=== PATIENT | male | born 1985 | race Hispanic/Latino ===

== ENCOUNTER 2017-12-10 16:55 | Emergency (ER) | payer OTHER ==
[2017-12-10] MEDS ORDERED: TETRACAINE HCL 0.5% 2ML OPTH ONE (17:34)
[2017-12-10] MEDS ORDERED: FLUORESCEIN SODIUM 0.6 MG/WRAP ONE (17:35)
--- NOTE | 2017-12-10 17:42 | ER ---
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 Transition of care: patient was not received from another setting of care. Onset of symptoms was December 10, 2017. Care prior to arrival: None. 17:08 Method Of Arrival: Ambulatory hj 17:08 Acuity: ELLY 4 hj Triage Assessment: 17:10 General: Appears in no apparent distress. uncomfortable, Behavior is calm, cooperative, hj appropriate for age. Pain: Complains of pain in right eye. Historical: - Allergies: 17:10 No Known Allergies; hj - Home Meds: 17:10 None [Active]; hj - PMHx: 17:10 None; hj - PSHx: 17:10 None; hj - Immunization history:: Adult Immunizations up to date. - Social history:: Smoking status: Patient/guardian denies using tobacco. Screenin:15 Abuse screen: Denies threats or abuse. Nutritional screening: No deficits noted. rb1 Tuberculosis screening: No symptoms or risk factors identified. Fall Risk None identified. Assessment: 17:15 General: Appears in no apparent distress. comfortable, Behavior is calm, cooperative. rb1 General: Denies fever. Pain: Complains of pain in right eye Pain currently is 6 out of 10 on a pain scale. Pain began Monday. Neuro: Level of Consciousness is awake, alert, obeys commands, Oriented to person, place, time, situation. Cardiovascular: Capillary refill < 3 seconds is brisk in bilateral fingers. Respiratory: Airway is patent Respiratory effort is even, unlabored, Respiratory pattern is regular, symmetrical. GI: No signs and/or symptoms were reported involving the gastrointestinal system. : No signs and/or symptoms were reported regarding the genitourinary system. EENT: Eyes Swelling noted to the right eye.. Derm: Skin is dry, Skin is normal, Skin temperature is warm. 17:56 Reassessment: Discharge pending, waiting on medication from pharmacy. rb1 18:08 Reassessment: Patient appears in no apparent distress at this time. No changes from rb1 previously documented assessment. Vital Signs: 17:10 BP 127 / 89; Pulse 79; Resp 18; Temp 97.6(TE); Pulse Ox 98% on R/A; Weight 81.65 kg; hj Height 5 ft. 5 in. (165.10 cm); Pain 6/10; 18:08 BP 122 / 91; Pulse 63; Resp 16; Pulse Ox 99% on R/A; rb1 17:10 Body Mass Index 29.95 (81.65 kg, 165.10 cm) ED Course: 16:58 Patient arrived in ED. sb2 17:10 Triage completed. hj 17:10 Arm band placed on right wrist. hj 17:13 David Fernando MD is Attending Physician. rn 17:15 Patient has correct armband on for positive identification. Bed in low position. Call rb1 light in reach. Side rails up X 1. Pulse ox on. NIBP on. 17:38 Kelley Hawthorne, RN is Primary Nurse. rb1 17:39 [facility] Al[facility]C [facility]. snw 18:18 No provider procedures requiring assistance completed. Patient did not have IV access rb1 during this emergency room visit. Administered Medications: 17:46 Drug: Bactrim (160 mg-800 mg (DS) 1 tablet Route: PO; rb1 18:18 Follow up: Response: No adverse reaction rb1 17:46 Drug: KeFLEX 500 mg Route: PO; rb1 18:18 Follow up: Response: No adverse reaction rb1 18:13 Drug: Tobrex 0.3 % 1 application Route: Ophthalmic; Site: right eye; rb1 Outcome: 17:41 Discharge ordered by . snw 18:18 Patient left the ED. rb1 18:18 Discharged to home ambulatory. rb1 18:18 Condition: stable 18:18 Discharge instructions given to patient, Instructed on discharge instructions, follow up and referral plans. medication usage, Demonstrated understanding of instructions, follow-up care, medications, Prescriptions given X 2. Signatures: Marita Alcantara FNP-C DIVERSITY MANAGER-Csnw David Fernando MD MD rn Joaquin, Henry, RN RN Kelley Hawthorne, KULWANT Spearu, Jimena sb2 Corrections: (The following items were deleted from the chart) 17:12 17:10 Pulse 79bpm; Resp 18bpm; Pulse Ox 100% RA; Temp 97.6F Temporal; 81.65 kg; Height hj 5 ft. 5 in.; BMI: 29.9; Pain 6/10; hj 19:03 18:18 Patient left the ED. rb1 rb1 19:06 18:08 Patient left the ED. rb1 rb1
--- NOTE | 2017-12-10 17:42 | EDPHYS ---
Physician Documentation [facility] Name: Clarence Copeland Age: 32 yrs Sex: Male : 1985 Arrival Date: 12/10/2017 Time: 16:58 Bed 16 Private MD: ED Physician David Fernando HPI: 12/10 17:22 This 32 yrs old Male presents to ER via Ambulatory with complaints of Foreign snw Body In Eye. 17:22 The patient is experiencing something growing on right upper eyelid, squeezed it and it snw bled a little. Onset: The symptoms/episode began/occurred suddenly, 3 day(s) ago, and became worse and became persistent. Duration: the symptoms are continuous. Aggravated by blinking, opening eye, rubbing. Associated signs and symptoms: Pertinent positives: None. Patient does not utilize any form of vision correction. Severity of symptoms: At their worst the symptoms were mild moderate in the emergency department the symptoms are unchanged. The patient has not experienced similar symptoms in the past. It is unknown whether or not the patient has recently seen a physician. 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 Historical: - Allergies: 17:10 No Known Allergies; hj - Home Meds: 17:10 None [Active]; hj - PMHx: 17:10 None; hj - PSHx: 17:10 None; hj - Immunization history:: Adult Immunizations up to date. - Social history:: Smoking status: Patient/guardian denies using tobacco. ROS: 17:21 Constitutional: Negative for fever, chills, and weight loss, ENT: Negative for injury, snw pain, and discharge, Neck: Negative for injury, pain, and swelling, Cardiovascular: Negative for chest pain, palpitations, and edema, Respiratory: Negative for shortness of breath, cough, wheezing, and pleuritic chest pain, Abdomen/GI: Negative for abdominal pain, nausea, vomiting, diarrhea, and constipation, Back: Negative for injury and pain, : Negative for injury, bleeding, discharge, and swelling, MS/Extremity: Negative for injury and deformity, Skin: Negative for injury, rash, and discoloration, Neuro: Negative for headache, weakness, numbness, tingling, and seizure. 17:21 Eyes: Positive for discharge, redness, swelling, of the right outer upper eyelid. Exam: 17:17 Constitutional: This is a well developed, well nourished patient who is awake, alert, snw and in no acute distress. Head/Face: Normocephalic, atraumatic. ENT: Nares patent. No nasal discharge, no septal abnormalities noted. Tympanic membranes are normal and external auditory canals are clear. Oropharynx with no redness, swelling, or masses, exudates, or evidence of obstruction, uvula midline. Mucous membranes moist. Neck: Trachea midline, no thyromegaly or masses palpated, and no cervical lymphadenopathy. Supple, full range of motion without nuchal rigidity, or vertebral point tenderness. No Meningismus. Chest/axilla: Normal chest wall appearance and motion. Nontender with no deformity. No lesions are appreciated. Cardiovascular: Regular rate and rhythm with a normal S1 and S2. No gallops, murmurs, or rubs. Normal PMI, no JVD. No pulse deficits. Respiratory: Lungs have equal breath sounds bilaterally, clear to auscultation and percussion. No rales, rhonchi or wheezes noted. No increased work of breathing, no retractions or nasal flaring. Abdomen/GI: Soft, non-tender, with normal bowel sounds. No distension or tympany. No guarding or rebound. No evidence of tenderness throughout. Back: No spinal tenderness. No costovertebral tenderness. Full range of motion. Skin: Warm, dry with normal turgor. Normal color with no rashes, no lesions, and no evidence of cellulitis. MS/ Extremity: Pulses equal, no cyanosis. Neurovascular intact. Full, normal range of motion. Neuro: Awake and alert, GCS 15, oriented to person, place, time, and situation. Cranial nerves II-XII grossly intact. Motor strength 5/5 in all extremities. Sensory grossly intact. Cerebellar exam normal. Normal gait. 17:17 Eyes: Periorbital structures: appear normal, Pupils: no acute changes, Extraocular movements: no acute changes, Conjunctiva: normal, Corneas: are normal, Sclera: no appreciated abnormality, Anterior chamber: normal, Lids and lashes: edema, of the right eye, hordeolum. Visual bailey: are intact. Vital Signs: 17:10 BP 127 / 89; Pulse 79; Resp 18; Temp 97.6(TE); Pulse Ox 98% on R/A; Weight 81.65 kg; hj Height 5 ft. 5 in. (165.10 cm); Pain 6/10; 18:08 BP 122 / 91; Pulse 63; Resp 16; Pulse Ox 99% on R/A; rb1 17:10 Body Mass Index 29.95 (81.65 kg, 165.10 cm) hj MDM: 17:13 Patient medically screened. rn 17:43 Data reviewed: vital signs, nurses notes. Data interpreted: Pulse oximetry: on room air snw is 98 %. Interpretation: normal. Counseling: I had a detailed discussion with the patient and/or guardian regarding: the historical points, exam findings, and any diagnostic results supporting the discharge/admit diagnosis, the presence of at least one elevated blood pressure reading (>120/80) during this emergency department visit, the need for outpatient follow up, to return to the emergency department if symptoms worsen or persist or if there are any questions or concerns that arise at home. Special discussion: I have referred the patient to see his PCP for further evaluation of high blood pressure. Based on the history and exam findings, there is no indication for further emergent testing or inpatient evaluation. I discussed with the patient/guardian the need to see the opthamologist for further evaluation of the symptoms, I discussed with the patient/guardian the need to see the primary care provider for further evaluation of the symptoms. Administered Medications: 17:46 Drug: Bactrim (160 mg-800 mg (DS) 1 tablet Route: PO; rb1 18:18 Follow up: Response: No adverse reaction rb1 17:46 Drug: KeFLEX 500 mg Route: PO; rb1 18:18 Follow up: Response: No adverse reaction rb1 18:13 Drug: Tobrex 0.3 % 1 application Route: Ophthalmic; Site: right eye; rb1 Disposition: 18:23 Co-signature as Attending Physician, David Fernando MD. rn Disposition: 12/10/17 17:41 Discharged to Home. Impression: Hordeolum externum right upper eyelid. - Condition is Stable. - Discharge Instructions: Stye, Heat Therapy. - Prescriptions for Keflex 500 mg Oral Capsule - take 1 capsule by ORAL route every 8 hours for 10 days; 30 capsule. Bactrim DS 800- 160 mg Oral Tablet - take 1 tablet by ORAL route every 12 hours for 10 days; 20 tablet. - Medication Reconciliation Form, Thank You Letter, Antibiotic Education, Prescription Opioid Use form. - Follow up: Private Physician; When: 2 - 3 days; Reason: Recheck today's complaints, Continuance of care, Re-evaluation by your physician. Follow up: Emergency Department; When: As needed; Reason: Worsening of condition. Signatures: Marita Alcantara, KIEL-C TEACHER PRIVATE-Csnw David Fernando MD MD rn Joaquin, Henry, RN RN hj Barber, Rebecca, RN RN rb1
[2017-12-10] MEDS ORDERED: CEPHALEXIN 250 MG CAP ONE (18:14)
[2017-12-10] MEDS ORDERED: SMZ./TMP. 800/160 MG TABLET ONE (18:14)
[2017-12-10] MEDS ORDERED: TOBRAMYCIN 0.3% 5ML OPTH DROPS OPTH ONE (18:15)
== END 2017-12-10 18:18 | disposition home or self-care (01) ==
LOC: ER 16:55
DX: H00.011 Hordeolum externum right upper eyelid (principal)
CPT/HCPCS: 99283

== ENCOUNTER 2017-12-23 20:43 | Emergency (ER) | payer OTHER ==
--- NOTE | 2017-12-23 22:32 | EDPHYS ---
Physician Documentation [facility] Name: Clarence Copeland Age: 32 yrs Sex: Male : 1985 Arrival Date: 12/23/2017 Time: 20:57 Bed 24 Private MD: ED Physician Sanjuana Álvarez HPI: 12/23 22:26 This 32 yrs old Male presents to ER via Ambulatory with complaints of Eye kav Problem. 22:26 The patient is experiencing stye right eyelid. Onset: The symptoms/episode kav began/occurred acutely, 2 week(s) ago. 22:33 Duration: the symptoms are continuous, are chronic. Aggravated by blinking, Alleviated kav by heat application. Associated signs and symptoms: Pertinent positives:. Associated signs and symptoms: Pertinent positives: None. Pertinent negatives: chills, fever. Patient does not utilize any form of vision correction. Severity of symptoms: At their worst the symptoms were mild just prior to arrival, in the emergency department the symptoms are unchanged despite home interventions. The patient has experienced a previous episode, approximately 2 weeks ago. The patient has been recently seen at the [facility] Emergency Department, a couple of weeks ago. seen in this ER 2 weeks ago for similar c/o and took "...all his medication and eye is much better but the stye is still on the upper eyelid". Historical: - Allergies: 21:02 No Known Allergies; la1 - PMHx: 21:02 None; la1 - Immunization history:: Adult Immunizations up to date. - Social history:: Smoking status: Patient/guardian denies using tobacco. - Family history:: not pertinent. - Hospitalizations: : No recent hospitalization is reported. - History obtained from: . ROS: 22:36 Constitutional: Negative for fever, chills, and weight loss, ENT: Negative for injury, kav pain, and discharge, Neck: Negative for injury, pain, and swelling, Cardiovascular: Negative for chest pain, palpitations, and edema, Respiratory: Negative for shortness of breath, cough, wheezing, and pleuritic chest pain, Abdomen/GI: Negative for abdominal pain, nausea, vomiting, diarrhea, and constipation, Back: Negative for injury and pain, : Negative for injury, bleeding, discharge, and swelling, MS/Extremity: Negative for injury and deformity, Neuro: Negative for headache, weakness, numbness, tingling, and seizure, Psych: Negative for depression, anxiety, suicide ideation, homicidal ideation, and hallucinations, Allergy/Immunology: Negative for hives, rash, and allergies, Endocrine: Negative for neck swelling, polydipsia, polyuria, polyphagia, and marked weight changes, Hematologic/Lymphatic: Negative for swollen nodes, abnormal bleeding, and unusual bruising. 22:36 Eyes: Positive for 22:37 Eyes: Negative for injury, pain, redness, and discharge. kav 22:37 Skin: Positive for lesions, of the right upper eyelid. Exam: 22:37 Visual Acuity: Visual acuity is within normal limits. kav 22:37 Constitutional: This is a well developed, well nourished patient who is awake, alert, and in no acute distress. Head/Face: Normocephalic, atraumatic. Eyes: Pupils equal round and reactive to light, extra-ocular motions intact. Lids and lashes normal. Conjunctiva and sclera are non-icteric and not injected. Cornea within normal limits. Periorbital areas with no swelling, redness, or edema. ENT: Nares patent. No nasal discharge, no septal abnormalities noted. Tympanic membranes are normal and external auditory canals are clear. Oropharynx with no redness, swelling, or masses, exudates, or evidence of obstruction, uvula midline. Mucous membranes moist. Neck: Trachea midline, no thyromegaly or masses palpated, and no cervical lymphadenopathy. Supple, full range of motion without nuchal rigidity, or vertebral point tenderness. No Meningismus. Chest/axilla: Normal chest wall appearance and motion. Nontender with no deformity. No lesions are appreciated. Cardiovascular: Regular rate and rhythm with a normal S1 and S2. No gallops, murmurs, or rubs. Normal PMI, no JVD. No pulse deficits. Respiratory: Lungs have equal breath sounds bilaterally, clear to auscultation and percussion. No rales, rhonchi or wheezes noted. No increased work of breathing, no retractions or nasal flaring. Abdomen/GI: Soft, non-tender, with normal bowel sounds. No distension or tympany. No guarding or rebound. No evidence of tenderness throughout. Back: No spinal tenderness. No costovertebral tenderness. Full range of motion. MS/ Extremity: Pulses equal, no cyanosis. Neurovascular intact. Full, normal range of motion. Neuro: Awake and alert, GCS 15, oriented to person, place, time, and situation. Cranial nerves II-XII grossly intact. Motor strength 5/5 in all extremities. Sensory grossly intact. Cerebellar exam normal. Normal gait. Psych: Awake, alert, with orientation to person, place and time. Behavior, mood, and affect are within normal limits. 22:37 Skin: lesion(s), papule(s) noted, located on the right supraorbital ridge. Vital Signs: 21:02 BP 129 / 100; Pulse 84; Resp 16; Temp 98.9; Pulse Ox 100% on R/A; Weight 78.47 kg; la1 22:54 BP 130 / 90; Pulse 89; Resp 17; Pulse Ox 100% on R/A; kr2 MDM: 21:52 Medical screening is not applicable. ka 22:37 Data reviewed: vital signs, nurses notes, old medical records. kav Administered Medications: No medications were administered Disposition: 12/24 01:28 Co-signature as Attending Physician, Sanjuana Álvarez MD. ma2 Disposition: 12/23/17 22:31 Discharged to Home. Impression: Hordeolum externum right upper eyelid. - Condition is Stable. - Discharge Instructions: Stye. - Prescriptions for Bactrim DS 800- 160 mg Oral Tablet - take 1 tablet by ORAL route every 12 hours for 10 days; 20 tablet. Erythromycin 5 mg/gram (0.5 %) Ophthalmic Ointment - apply 1 centimeter by OPHTHALMIC route 2-3 times daily for 7 days; 1 tube. - Medication Reconciliation Form, Thank You Letter, Antibiotic Education, Prescription Opioid Use form. - Follow up: Private Physician; When: 5 - 6 days; Reason: Recheck today's complaints, Continuance of care, Re-evaluation by your physician. - Problem is an acute exacerbation. - Symptoms are unchanged. Signatures: Enid Mccoy FNP FNP kav Attema, Lee RN RN la1 Yashira Griffin RN RN kr2 Sanjuana Álvarez MD MD ma2
--- NOTE | 2017-12-23 22:32 | ER ---
Nurse's Notes [facility] Name: Clarence Copeland Age: 32 yrs Sex: Male : 1985 Arrival Date: 12/23/2017 Time: 20:57 Bed 24 Private MD: Diagnosis: Hordeolum externum right upper eyelid Presentation: 12/23 21:02 Presenting complaint: Patient states: I have had a red thing on my right eye for 3 la1 weeks. Transition of care: patient was not received from another setting of care. Onset of symptoms was December 23, 2017. Initial Sepsis Screen: Does the patient meet any 2 criteria? No. Patient's initial sepsis screen is negative. Does the patient have a suspected source of infection? No. Patient's initial sepsis screen is negative. Care prior to arrival: None. 21:02 Method Of Arrival: Ambulatory la1 21:02 Acuity: ELLY 5 la1 Historical: - Allergies: 21:02 No Known Allergies; la1 - PMHx: 21:02 None; la1 - Immunization history:: Adult Immunizations up to date. - Social history:: Smoking status: Patient/guardian denies using tobacco. - Family history:: not pertinent. - Hospitalizations: : No recent hospitalization is reported. - History obtained from: . Screenin:14 Abuse screen: Denies threats or abuse. Nutritional screening: No deficits noted. la1 Tuberculosis screening: No symptoms or risk factors identified. Fall Risk None identified. Assessment: 21:13 General: Appears in no apparent distress. Behavior is calm, cooperative. Pain: Denies la1 pain. Neuro: Level of Consciousness is awake, alert, obeys commands, Oriented to person, place, time, situation. Cardiovascular: Capillary refill < 3 seconds Patient's skin is warm and dry. Respiratory: Airway is patent Respiratory effort is even, unlabored. GI: No signs and/or symptoms were reported involving the gastrointestinal system. : No signs and/or symptoms were reported regarding the genitourinary system. EENT: Eyes sty noted to right eyelid.. 22:24 Reassessment: Patient appears in no apparent distress at this time. Patient and/or kr2 family updated on plan of care and expected duration. Pain level reassessed. Patient is alert, oriented x 3, equal unlabored respirations, skin warm/dry/pink. Patient denies pain at this time. Vital Signs: 21:02 BP 129 / 100; Pulse 84; Resp 16; Temp 98.9; Pulse Ox 100% on R/A; Weight 78.47 kg; la1 22:54 BP 130 / 90; Pulse 89; Resp 17; Pulse Ox 100% on R/A; kr2 ED Course: 20:57 Patient arrived in ED. al2 21:02 Triage completed. la1 21:03 Arm band placed on right wrist. la1 21:14 Adult w/ patient. la1 21:14 No provider procedures requiring assistance completed. Patient did not have IV access la1 during this emergency room visit. 21:52 Enid Mccoy FNP is [facility]. bee 21:52 Sanjuana Álvarez MD is Attending Physician. kav 22:24 Yashira Griffin, RN is Primary Nurse. kr2 Administered Medications: No medications were administered Outcome: 22:31 Discharge ordered by MD. kav 22:53 Discharged to home ambulatory, with family. kr2 22:53 Condition: good 22:53 Discharge instructions given to patient, Instructed on discharge instructions, follow up and referral plans. medication usage, Demonstrated understanding of instructions, follow-up care, medications, Prescriptions given X 2. 22:54 Patient left the ED. kr2 Signatures: Enid Mccoy FNP FNP kav Attema, Lee RN RN la1 Yashira Griffin, KULWANT RN kr2 Roselyn Luke al2
== END 2017-12-23 22:54 | disposition home or self-care (01) ==
LOC: ER 20:43
DX: H00.021 Hordeolum internum right upper eyelid (principal)
CPT/HCPCS: 99282